=== PATIENT | male | born 1970 | race Caucasian/White ===

== ENCOUNTER 2016-10-25 14:07 | Emergency (ER) | payer OTHER ==
[2016-10-25] MEDS ORDERED: ACETAMINOPHEN 160 MG/5 ML UDCUP PO ONE (14:18)
--- NOTE | 2016-10-25 14:24 | UCPHY ---
H & P Patient Type: Established Time Seen by Provider: 10/25/16 14:11 HPI/ROS: Chief Complaint: Head injury, loss of conscious, facial pain HPI: 45-year-old male was playing hockey at lunchtime when he was checked into the boards striking his left face. Patient states he had a loss of consciousness at that time. Patient then states when he was being helped up he lost consciousness once again. He is complaining of a left-sided headache. In facial pain. Is also feeling somewhat dazed and confused. Some nausea no vomiting. Has pain in his left cheek swelling to his left lower lip and pain in his left upper teeth. No numbness or tingling. Denies any other injuries. He was wearing a helmet. He says recollection of events seems a little bit vague. ROS: 10 point Review of Systems is negative except as noted in the HPI. PMH: None Medications: None Allergies: None Social History: No smoking, no alcohol, no recreational drug use Family History: non-contributory Physical Exam: Gen: Awake, Alert, Airway Intact HEENT: Head: Atraumatic Eyes: PERRLA, EOMI Ears: No hemotympanum Nose: No epistaxis Mouth: Normal dentition, his ecchymosis to his left lower lip. There is no laceration. There is a small abrasion. Was on the mucosal surface. Has some mild left upper incisor tenderness without avulsion. There is no gingival bleeding. Face: He has swelling over his left zygoma without deformity, there is some edema Neck: Mild left-sided tenderness greater than midline at see to see for without deformity or step-offs Chest: non-tender, lungs CTA Heart: normal heart tones Abd: soft, non-tender, atraumatic Pelvis: non-tender, stable to AP and Lateral compression Back: atraumatic, no midline tenderness Ext: atramatic, full ROM Skin: no rash Neuro: CN II-XII intact, Strength 5/5 in all extremities, sensation intact in all extremities - Personal History Tetanus Vaccine Date: WITHIN 10 YRS - Medical/Surgical History Hx Asthma: No Hx Chronic Respiratory Disease: No Hx Diabetes: No Hx Cardiac Disease: Yes Hx Renal Disease: No Hx Cirrhosis: No Hx Alcoholism: No Hx HIV/AIDS: No Hx Splenectomy or Spleen Trauma: No Other PMH: HTN, knee sx - Family History Significant Family History: No pertinent family hx - Social History Smoking Status: Never smoked Constitutional: Initial Vital Signs Temperature (C) 36.5 C 10/25/16 14:23 Heart Rate 90 10/25/16 14:23 Respiratory Rate 16 10/25/16 14:23 Blood Pressure 143/94 H 10/25/16 14:23 O2 Sat (%) 93 10/25/16 14:23 O2 Delivery Mode Room Air Allergies/Adverse Reactions: No Known Allergies Allergy (Verified 10/25/16 14:22) Home Medications: Medication Instructions Recorded Propranolol HCl 10/25/16 Medical Decision Making - Diagnostics Imaging: Imaging Impressions Cervical Spine CT 10/25/16 14:17 Impression: 1. No acute posttraumatic abnormality identified. If there is persistent pain or neurologic deficit, consider MRI and/or flexion and extension views if clinically indicated. 2. Multilevel degenerative change with additional findings as above. Findings discussed with Tera Kruger MD 10/25/2016 at 14:57. Head CT 10/25/16 14:17 Impression: Left facial soft tissue swelling with no acute intracranial findings. Findings discussed with Tera Kruger MD 10/25/2016 at 14:57. ED Course/Re-evaluation: A CT scan of the head was performed as a paced and had a loss of consciousness, had a 2nd loss of consciousness, continues to have persistent headaches and is complaining of feeling dazed and confused with some decreased recollection of events. CT scans are negative as reported by Dr. Kathleen. Patient is feeling improved. Will discharge with follow up with primary care physician. He is given been given head injury and concussion precautions. He has also been instructed to get a new hockey helmet. - Data Points Medications Given: Discontinued Medications Acetaminophen (Tylenol 160mg/5ml Oral Liquid) 1,000 mg PO EDNOW ONE Stop: 10/25/16 14:19 Last Admin: 10/25/16 14:43 Dose: Not Given Hydrocodone Bitart/Acetaminophen ([place] 5/325) 1 tab PO EDNOW ONE Stop: 10/25/16 14:30 Last Admin: 10/25/16 14:35 Dose: 1 tab Ondansetron HCl (Zofran Odt) 4 mg PO EDNOW ONE Stop: 10/25/16 14:31 Last Admin: 10/25/16 14:30 Dose: 4 mg Departure - Departure Disposition: Home, Routine, Self-Care Clinical Impression: Contusion of face, Contusion, lip, Head injury Condition: Good Instructions: Facial Contusion (ED), Head Injury (ED) Additional Instructions: Do not engage in any activities in which you might sustain a head injury until you been without symptoms for at least a week. You must by a new hockey helmet. Return urgent care or emergency department for any concerns. Follow up with primary care physician in 2-4 days if symptoms are not improving. Referrals: GILMAR BENDER [Primary Care Provider] - As per Instructions - PQRS PQRS Measurement: NA
[2016-10-25 14:27] VITALS: BP 143/94; PULSE 90; RESP 16; TEMP 97.7; O2SAT 93
[2016-10-25] MEDS ORDERED: HYDROCODONE/APAP 5/325 TAB PO ONE (14:29)
[2016-10-25] MEDS ORDERED: ONDANSETRON DISINTEGRATING 4 MG TAB PO ONE (14:30)
== END 2016-10-25 15:20 | disposition home or self-care (01) ==
LOC: CED 14:07
DX: S06.9X9A Unspecified intracranial injury with loss of consciousness of unspecified duration, initial encounter (principal); S00.83XA Contusion of other part of head, initial encounter; S00.531A Contusion of lip, initial encounter; I10 Essential (primary) hypertension; W22.8XXA Striking against or struck by other objects, initial encounter; Y93.22 Activity, ice hockey
CPT/HCPCS: 70450-PO; 72125-PO; 99214-PO; G0463-PO